=== PATIENT | male | born 1970 | race Caucasian/White ===

== ENCOUNTER 2016-12-27 20:19 | Inpatient (IN) | payer MEDICAID, OTHER ==
[~2016-12-27] VITALS: Ht 180.3 cm; Wt 99.0 kg
[2016-12-27 20:33] LABS: GLUCOSE COMMENT 1 Repeated; GLUCOSE,POINT OF CARE 153 MG/DL (70-110)
[2016-12-27] MEDS ORDERED: CLON.5 PO (20:37)
[2016-12-27] MEDS ORDERED: SERT50TA12 PO (20:37)
[2016-12-27] MEDS ORDERED: PROP10TA73 PO (20:37)
[2016-12-27] MEDS ORDERED: MIRT15 PO (20:37)
[2016-12-27] MEDS ORDERED: ARIP2 PO (20:37)
[2016-12-27] MEDS ORDERED: NALOXONE HCL 1 MG/ML 2 ML SYG IVP ONE (21:15)
[2016-12-27 22:42] LABS: BASOPHILS # (AUTO) 0.05 K/uL (0.00-0.20); BASOPHILS % (AUTO) 0.4 % (0.0-2.0); EOSINOPHILS # (AUTO) 0.25 K/uL (0.00-0.70); EOSINOPHILS % (AUTO) 2.36 % (1.0-6.0); HEMATOCRIT 39.6 % (41-53); HEMOGLOBIN 13.2 g/dL (13.5-17.5); LYMPHOCYTES # (AUTO) 2.3 K/uL (1.0-4.8); LYMPHOCYTES % (AUTO) 21.6 % (22.0-44.0); MEAN CORPUSCULAR HEMOGLOBIN 30.4 pg (26.0-34.0); MEAN CORPUSCULAR HGB CONC 33.4 G/dL (31.0-37.0); MEAN CORPUSCULAR VOLUME 91 fL (80-100); MONOCYTES # (AUTO) 0.8 K/uL (0.1-1.0); MONOCYTES % (AUTO) 6.9 % (2.0-9.0); NEUTROPHILS # (AUTO) 7.4 K/uL (1.8-7.7); NEUTROPHILS % (AUTO) 68.7 % (40.0-70.0); PLATELET COUNT (AUTO) 235 K/uL (150-450); RED BLOOD CELL COUNT(AUTO) 4.34 MIL/uL (4.50-5.90); RED CELL DISTRIBUTION WIDTH 14.1 % (11.5-14.5); WHITE BLOOD COUNT (AUTO) 10.8 K/uL (4.5-11.0)
[2016-12-27 23:00] LABS: ANION GAP 8 mmol/L (8-16); CALCIUM, TOTAL 7.9 mg/dL (8.8-10.5); CARBON DIOXIDE 28 mmol/L (22-29); CHLORIDE 108 mmol/L (98-107); CREATININE 0.99 mg/dL (0.60-1.30); GLOMERULAR FILTR. RATE CALC > 60 mL/min (>60); POTASSIUM 4.4 mmol/L (3.5-5.1); SODIUM SERUM 144 mmol/L (136-145); UREA NITROGEN, BLOOD 14 mg/dL (7-18)
[2016-12-27 23:05] LABS: ALANINE AMINOTRANSFERASE 80 U/L (12-78); ALBUMIN 3.7 g/dL (3.4-5.0); ASPARTATE AMINOTRANSFERASE 21 U/L (15-37); BILIRUBIN,TOTAL 0.2 mg/dL (0.1-1.0); TOTAL PROTEIN, SERUM 7.4 g/dL (6.4-8.2)
[2016-12-28 01:02] LABS: CREATINE KINASE MB 2.1 ng/mL (0-5); CREATINE KINASE, TOTAL 167 U/L (39-308)
[2016-12-28 01:03] LABS: ACETAMINOPHEN < 2 mcg/mL (10-30)
[2016-12-28 01:13] LABS: SALICYLATE < 2.8 mg/dL (2.8-20.0)
[2016-12-28] MEDS ORDERED: SODIUM CHLORIDE 0.9% 1,000 ML IV ONE (04:45)
[2016-12-28] MEDS ORDERED: IPRATROPIUM BROMIDE 0.5 MG/2.5 ML NEB SOLUTION NEB PRN (08:00)
[2016-12-28] MEDS ORDERED: ACETAMINOPHEN 325 MG TABLET PO PRN (08:00)
[2016-12-28] MEDS ORDERED: ONDANSETRON HCL 4 MG/2 ML VIAL IVP PRN (08:00)
[2016-12-28] MEDS ORDERED: ALBUTEROL SULFATE 2.5 MG/0.5 ML NEB SOLUTION NEB PRN (08:00)
[2016-12-28] MEDS ORDERED: NALOXONE HCL 0.4 MG/ML VIAL IM PRN (08:00)
[2016-12-28 08:27] VITALS: BP 133/79
[2016-12-28] MEDS: SODIUM BICARBONATE 100 MEQ in SODIUM CHLORIDE 0.9% 1,000 ML IV SCH ×3 (09:14→21:49)
[2016-12-28] MEDS: ENOXAPARIN SODIUM 40 MG/0.4 ML PF SYRINGE SQ SCH (09:14)
[2016-12-28 11:32] VITALS: BP 136/81
[2016-12-28] MEDS: MethylPREDNISolone SOD SUCC 125 MG/2 ML VIAL IVP SCH ×2 (12:00→17:19)
[2016-12-28 15:38] VITALS: BP 113/77
[2016-12-28] MEDS ORDERED: INFLUENZA VIRUS VACCINE QVS 2017-18 (3YR+)/PF 60 MCG/0.5 ML SYRINGE IM ONE (16:00)
[2016-12-28 19:38] VITALS: BP 108/60
[2016-12-28 23:30] VITALS: BP 105/63
[2016-12-29 00:02] LABS: GLUCOSE,POINT OF CARE 175 MG/DL (70-110)
[2016-12-29] MEDS: MethylPREDNISolone SOD SUCC 125 MG/2 ML VIAL IVP SCH ×3 (00:48→11:54)
[2016-12-29 03:23] VITALS: BP 124/60
[2016-12-29] MEDS: SODIUM BICARBONATE 100 MEQ in SODIUM CHLORIDE 0.9% 1,000 ML IV SCH (05:30)
[2016-12-29 07:20] VITALS: BP 121/57
[2016-12-29] MEDS ORDERED: ALBU8.5H8 IH (07:57)
[2016-12-29] MEDS: ENOXAPARIN SODIUM 40 MG/0.4 ML PF SYRINGE SQ SCH (09:00)
[2016-12-29 11:29] VITALS: BP 129/70
== END 2016-12-29 14:55 | disposition home or self-care (01) | DRG 816 ==
LOC: EMS 20:21 → 5N 12-28 07:03
PROVIDERS: ADMIT Hospitalist; ATTEND Hospitalist
DX: T40.1X1A Poisoning by heroin, accidental (unintentional), initial encounter (principal); G92 Toxic encephalopathy; F20.9 Schizophrenia, unspecified; J45.901 Unspecified asthma with (acute) exacerbation; E66.9 Obesity, unspecified; F10.20 Alcohol dependence, uncomplicated; F17.200 Nicotine dependence, unspecified, uncomplicated; F43.10 Post-traumatic stress disorder, unspecified; G47.30 Sleep apnea, unspecified; F19.10 Other psychoactive substance abuse, uncomplicated; F99 Mental disorder, not otherwise specified; Z68.30 Body mass index [BMI] 30.0-30.9, adult; Z91.19 Patient's noncompliance with other medical treatment and regimen; Z88.8 Allergy status to other drugs, medicaments and biological substances
CPT/HCPCS: 82948; 82962; 93005; 96361; 96374; 99285; G0480; G0481; J1650; J2310; J2930; J3490; J7030